=== PATIENT | female | born 1970 | race Hispanic/Latino ===

== ENCOUNTER 2025-02-16 23:47 | Emergency (ER) | payer OTHER ==
[~2025-02-16] VITALS: Ht 152.4 cm; Wt 65.8 kg
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
[2025-02-17 02:17] VITALS: TEMP 98.1
[2025-02-17] MEDS ORDERED: KETO10TA2 PO (02:37)
[2025-02-17] MEDS ORDERED: CYCL10TA16 PO (02:37)
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
[2025-02-17 02:44] VITALS: BP 118/64; PULSE 75; RESP 18; O2SAT 98
== END 2025-02-17 02:52 | disposition home or self-care (01) ==
LOC: EDH 23:47
DX: S13.4XXA Sprain of ligaments of cervical spine, initial encounter (principal); S09.90XA Unspecified injury of head, initial encounter; I10 Essential (primary) hypertension; Z90.710 Acquired absence of both cervix and uterus; V43.62XA Car passenger injured in collision with other type car in traffic accident, initial encounter; Y93.89 Activity, other specified; Y92.488 Other paved roadways as the place of occurrence of the external cause; Y99.8 Other external cause status
CPT/HCPCS: 70450; 72125; 99284